=== PATIENT | female | born 1975 | race Caucasian/White ===

== ENCOUNTER → 2020-06-15 | Outpatient (CLI) | payer OTHER ==
--- NOTE | 2020-06-15 11:14 | Diagnostic Imaging Report ---
PROCEDURE: US Non-ob pelvis comp/trans. TECHNIQUE: Multiple realtime grayscale images were obtained of the pelvis in various projections endovaginally. Transabdominal imaging was also performed. INDICATION: Abnormal uterine bleeding. COMPARISON: None available. FINDINGS: The uterus measures 10.0 x 6.3 x 6.6 cm. The myometrium is normal in echogenicity without discrete mass. The endometrium measures up to 1.2 cm where visualized, and is normal in echogenicity. The right ovary measures 3.4 x 2.0 x 2.1 cm. The left ovary measures 2.7 x 1.7 x 1.8 cm. Both ovaries are physiologic in appearance with a dominant follicle in the right ovary measuring 1.4 x 1.7 x 1.4 cm. Blood flow is seen in both ovaries on color doppler imaging. No suspicious adnexal mass or fluid collection. No free pelvic fluid. IMPRESSION: 1. No fibroid. 2. Normal endometrial thickness with a physiologic appearance. 3. Physiologic ovaries with small simple follicles on both sides. Dictated by: Dictated on workstation # [id number]
--- NOTE | 2020-06-15 13:47 | Diagnostic Imaging Report ---
INDICATION: Routine screening. Correlation is made with prior mammogram 06/29/2016. 2-D and 3-D bilateral screening mammography was performed with CAD. Both breasts remain heterogeneously dense, limiting the sensitivity of mammography. The parenchymal pattern is stable. No mass or malignant appearing microcalcifications are identified. Axillae are unremarkable. IMPRESSION: BI-RADS Category 1 No mammographic features suspicious for malignancy are identified. ACR BI-RADS Category 1: Negative. Result letter will be mailed to the patient. Note: At least 10% of breast cancer is not imaged by mammography. Dictated by: Dictated on workstation # [id number]
== END ==
LOC: RAD 08:45
PROVIDERS: ATTEND Obstetrics & Gynecology
DX: Z12.31 Encounter for screening mammogram for malignant neoplasm of breast (principal); N93.9 Abnormal uterine and vaginal bleeding, unspecified
CPT/HCPCS: 76830; 76856; 77063; 77067

== ENCOUNTER 2021-05-03 05:32 | Outpatient (CLI) | payer OTHER ==
[~2021-05-03] VITALS: Ht 180.3 cm; Wt 117.7 kg
[2021-05-03] MEDS ORDERED: PREDNISONE PACK (15:33)
[2021-05-03] MEDS ORDERED: LISI5TAB20 PO (15:33)
[2021-05-03] MEDS ORDERED: AMOX400S9 PO (15:33)
== END 2021-05-03 15:52 | disposition home or self-care (01) ==
LOC: PREOP 05:32
PROVIDERS: ATTEND Obstetrics & Gynecology
DX: Z01.818 Encounter for other preprocedural examination (principal)

== ENCOUNTER 2021-05-09 09:35 | Day surgery (SDC) | payer OTHER ==
[2021-05-09] VITALS (9 sets, daily range): BP systolic 109–134; BP diastolic 70–96
[~2021-05-09] VITALS: Ht 180.3 cm; Wt 117.7 kg
[~2021-05-09 09:35] MED LIST: AMOX400S9 PO; LISI5TAB20 PO; PREDNISONE PACK
[2021-05-09] MEDS: LACTATED RINGERS 1,000 ML IV PRN ×2 (10:30→10:33)
[2021-05-09 10:51] LABS: BASOPHILS % (AUTO) 1 % (0-10); EOSINOPHILS # (AUTO) 0.1 10^3/uL (0.0-0.3); EOSINOPHILS % (AUTO) 1 % (0-10); HEMATOCRIT 39 % (35-52); HEMOGLOBIN 12.7 g/dL (11.5-16.0); LYMPHOCYTES # (AUTO) 1.8 10^3/uL (1.0-4.0); LYMPHOCYTES % (AUTO) 33 % (12-44); MEAN CORPUSCULAR HEMOGLOBIN 29 pg (25-34); MEAN CORPUSCULAR HGB CONC 33 g/dL (32-36); MEAN CORPUSCULAR VOLUME 91 fL (80-99); MEAN PLATELET VOLUME 9.2 fL (9.0-12.2); MONOCYTES # (AUTO) 0.4 10^3/uL (0.0-1.0); MONOCYTES % (AUTO) 7 % (0-12); NEUTROPHILS # (AUTO) 3.1 10^3/uL (1.8-7.8); NEUTROPHILS % (AUTO) 57 % (42-75); PLATELET COUNT 226 10^3/uL (130-400); WHITE BLOOD COUNT 5.4 10^3/uL (4.3-11.0)
[2021-05-09] MEDS ORDERED: proPOfol 200 MG/20 ML (DIPRIVAN) VIAL IV ONE (12:01)
[2021-05-09] MEDS ORDERED: SEVOFLURANE (ULTANE) 15 ML INHAL SOLN ONE (12:01)
[2021-05-09] MEDS ORDERED: ONDANSETRON 4 MG/2 ML (SDV) Z0FRAN ONE (12:01)
[2021-05-09] MEDS ORDERED: MIDAZOLAM 2 MG/2 ML (VERSED) VIAL ONE (12:01)
[2021-05-09] MEDS ORDERED: LIDOCAINE PF 2% 5 ML (XYLOCAINE) VIAL ONE (12:01)
[2021-05-09] MEDS ORDERED: fentaNYL INJ 100 MCG/2 ML AMP ONE (12:01)
[2021-05-09] MEDS ORDERED: BUPIVACAINE 0.25% 30 ML (SENSORCAINE) VIAL ONE (12:36)
--- NOTE | 2021-05-09 12:58 | Progress Note-Pre Operative ---
Pre-Operative Progress Note H&P Reviewed The H&P was reviewed, patient examined and no changes noted. Date Seen by Provider: May 09, 2021 Time Seen by Provider: 12:35 Date H&P Reviewed: May 09, 2021 Time H&P Reviewed: 12:30 Pre-Operative Diagnosis: AUB, BMI 36 FLAKO MONTGOMERY DO May 09, 2021 12:58 pm
[2021-05-09] MEDS ORDERED: HYDROcodone/APAP 5 MG/325 MG (LORTAB) TAB PO PRN (13:00)
[2021-05-09] MEDS ORDERED: D5 LR IV SOLUTION 1,000 ML IV SCH (13:00)
[2021-05-09] MEDS ORDERED: ONDANSETRON 4 MG/2 ML (SDV) Z0FRAN IVP PRN ×2 (13:00→13:30)
[2021-05-09] MEDS ORDERED: KETOROLAC 30 MG/ML VIAL IVP ONE (13:00)
--- NOTE | 2021-05-09 13:00 | Discharge Inst-Women's Service ---
Discharge Inst-Women's Serv Depart Medication/Instructions New, Converted or Re-Newed RX: Other Instructions take OTC motrin as needed Problems Reviewed?: Yes Consults/Follow Up Additional Follow Up: Yes Orders/Referrals Dr. Montgomery or Jenifer in 7-10 days Activity Activity: Activity as Tolerated Driving Instructions: No Driving for 1 Week NO SMOKING: NO SMOKING Nothing Inside Vagina: No Douching, No [place], No Tampons Diet Discharge Diet: No Restrictions Symptoms to Report to : Bleeding Excessive, Pain Increased, Fever Over 101 Degrees F, Vaginal Bleeding Increase, Questions/Concerns For Any Problems or Questions: Contact Your Physician FLAKO MONTGOMERY DO May 09, 2021 1:00 pm
[2021-05-09] MEDS ORDERED: HYDROmorphone 2 MG/ML VIAL (DILAUDID) IV ONE (13:30)
[2021-05-09] MEDS ORDERED: PROMETHAZINE INJ 25 MG/ML (PHENERGAN) AMP IVP ONE (13:30)
[2021-05-09] MEDS ORDERED: MEPERIDINE (DEMEROL) INJ 50 MG/ML IVP ONE (13:30)
[2021-05-09] MEDS ORDERED: morphine INJ 10 MG/ML 1ML (SYR OR VIAL) IVP ONE (13:30)
--- NOTE | 2021-05-09 13:31 | Anesthesia-General Post-Op ---
General Patient Condition Mental Status/LOC: Same as Preop Cardiovascular: Satisfactory Nausea/Vomiting: Absent Respiratory: Satisfactory Pain: Controlled Complications: Absent Post Op Complications Complications None Follow Up Care/Instructions Patient Instructions None needed. Anesthesia/Patient Condition Patient Condition Patient is doing well, no complaints, stable vital signs, no apparent adverse anesthesia problems. No complications reported per nursing. ANGELI KRISHNAN CRNA May 09, 2021 13:31
[2021-05-09] MEDS ORDERED: KETOROLAC 30 MG/ML VIAL ONE (13:52)
--- NOTE | 2021-05-09 23:55 | OPERATIVE REPORT ---
DATE OF SERVICE: PREOPERATIVE DIAGNOSES: 1. A 46-year-old female with abnormal uterine bleeding. 2. BMI greater than 35. POSTOPERATIVE DIAGNOSES: 1. A 46-year-old female with abnormal uterine bleeding. 2. BMI greater than 35. PROCEDURE: D and C. SURGEON: Flako Montgomery DO ANESTHESIA: LMA general. ESTIMATED BLOOD LOSS: Minimal. URINE OUTPUT: 200 mL drained at the start of the procedure. FLUIDS: 800 mL lactated Ringer's solution. FINDINGS: Grossly normal-appearing external female genitalia. There is an endocervical suggestion for possible polyp. SPECIMEN SENT: Endometrial curettings. INDICATIONS FOR PROCEDURE: This 46-year-old female is a patient who returned to my care after having abnormal uterine bleeding for the past several months. This seemed to be getting worse and more irregular. I discussed with the patient due to her age and body habitus, the need for endometrial sampling. We attempted to do this in the office and were unable to do so, therefore, I scheduled the patient for D and C. Risks of the procedure were discussed with the patient in detail and after all of her questions were answered, consent was obtained, the patient was taken to the operating room. OPERATIVE REPORT IN DETAIL: Once in the operating room, anesthesia was found to be adequate. She was placed in dorsal lithotomy position, prepped and draped in normal sterile fashion. A timeout was performed. The bladder is drained using straight catheterization. A weighted speculum inserted to the patient's vagina. Right angle retractor was used to visualize the cervix, which was grasped at 12 o'clock position using a long Allis clamp. I then performed paracervical block at 3 and 9 o'clock positions on the cervix. Care was taken to aspirate for injecting. A total of 5 mL was injected into each injection site using 0.25% Marcaine. I then gently sound the uterine cavity, depth was found to be approximately 8 cm. I dilated the cervix using Hegar dilators. There is not much dilation needed as the cervix was already deviated open with a large reddish endocervical mass, which is suspicious for endometrial polyp. I performed curetting of all endometrial surfaces using a medium size endometrial curette. All of these tissues were sent as endometrial curettings. I then cauterized the raw surfaces of the endocervical mass where bleeding was noted after removal of it after which there was no active bleeding noted from the patient's vagina or cervix. I then removed all the other instruments from the patient's vagina. The patient tolerated the procedure well and was taken to recovery area in stable condition. Lap and sponge count was correct at the end of procedure. Instrument counts correct as well. Job ID: [id number] DocumentID: [id number] Dictated Date: 05/09/2021 13:47:42 Housekeeper And Laundry Assistant Date: 05/09/2021 23:54:27 Dictated By: FLAKO MONTGOMERY DO
== END 2021-05-09 15:10 | disposition home or self-care (01) ==
LOC: SDC 09:35
PROVIDERS: ATTEND Obstetrics & Gynecology
DX: N84.1 Polyp of cervix uteri (principal); I10 Essential (primary) hypertension; E66.9 Obesity, unspecified; Z68.36 Body mass index [BMI] 36.0-36.9, adult; Z98.890 Other specified postprocedural states; Z79.2 Long term (current) use of antibiotics; Z79.899 Other long term (current) drug therapy
CPT/HCPCS: 36415; 84703; 85025; 86850; 86900; 86901; 87081; 88305

== ENCOUNTER → 2022-09-20 | Outpatient (CLI) | payer OTHER ==
--- NOTE | 2022-09-20 13:28 | Diagnostic Imaging Report ---
INDICATION: Routine screening. COMPARISON: 07/26/2021 and 06/15/2020. TECHNIQUE: 2D and 3D bilateral screening mammography was performed with CAD. FINDINGS: Both breasts are heterogeneously dense, limiting the sensitivity of mammography. The parenchymal pattern is stable. No mass or malignant-appearing microcalcifications are seen. There are benign calcifications bilaterally. The axillae are unremarkable. IMPRESSION: No mammographic features suspicious for malignancy are identified. ACR BI-RADS Category 2: Benign findings. Result letter will be mailed to the patient. Note: At least 10% of breast cancer is not imaged by mammography. Dictated by: Dictated on workstation # [id number]
== END ==
LOC: RAD 10:10
PROVIDERS: ATTEND Obstetrics & Gynecology
DX: Z12.31 Encounter for screening mammogram for malignant neoplasm of breast (principal)
CPT/HCPCS: 77063; 77067